=== PATIENT | male | born 1985 | race Caucasian/White ===

== ENCOUNTER 2017-02-28 03:05 | Emergency (ER) | payer SELFPAY ==
[~2017-02-28] VITALS: Ht 180.3 cm; Wt 106.1 kg
[2017-02-28 03:17] VITALS: BP 138/72
--- NOTE | 2017-02-28 03:31 | NUR ---
31Y M BIB [facility] Fell and broke fall with right hand, c/o right hand pain to 5th carpel area X 4 DAYS AGO. PT DENIES N/V/D; SKIN IS PINK/WARM/DRY; AAOX4 WITH EVEN AND STEADY GAIT; LUNGS CLEAR BL; HR EVEN AND REGULAR; PT DENIES ANY FEVER, CP, SOB, OR COUGH AT THIS TIME; PATIENT STATES PAIN OF 8/10 AT THIS TIME; VSS; PATIENT POSITIONED FOR COMFORT; HOB ELEVATED; BEDRAILS UP X2; BED DOWN. ER MD MADE AWARE OF PT STATUS.
--- NOTE | 2017-02-28 03:43 | NUR ---
Dr. Shah evaluating patient at bedside.
[2017-02-28] MEDS: KETOROLAC 60 MG/2 ML VIAL IM ONE (03:58)
[2017-02-28 04:05] VITALS: BP 128/75
--- NOTE | 2017-02-28 04:05 | NUR ---
Patient discharged with v/s stable. Written and verbal after care instructions given and explained. Patient alert, oriented and verbalized understanding of instructions. Ambulatory with steady gait. All questions addressed prior to discharge. ID band removed. Patient advised to follow up with PMD. Rx of ULTRAM 50MG given. Patient educated on indication of medication including possible reaction and side effects. Opportunity to ask questions provided and answered.
--- NOTE | 2017-02-28 09:17 | NUR ---
TELEPHONED PATIENT RE X RAY REPORT NO ANSWER LEFT VOICE MAIL FOR TO RETURN TO ER FOR SPLINT AND FOLLOW UP INSTRUCTIONS.
== END 2017-02-28 04:05 | disposition home or self-care (01) ==
LOC: MED 03:05
DX: S62.344A Nondisplaced fracture of base of fourth metacarpal bone, right hand, initial encounter for closed fracture (principal); S62.316A Displaced fracture of base of fifth metacarpal bone, right hand, initial encounter for closed fracture; R03.0 Elevated blood-pressure reading, without diagnosis of hypertension; F17.210 Nicotine dependence, cigarettes, uncomplicated; W01.0XXA Fall on same level from slipping, tripping and stumbling without subsequent striking against object, initial encounter; Y93.89 Activity, other specified; Y92.89 Other specified places as the place of occurrence of the external cause; Y99.8 Other external cause status
CPT/HCPCS: 73130; 96372; 99284; J1885; Q0092